=== PATIENT | male | born 1985 | race Caucasian/White ===

== ENCOUNTER 2019-03-02 14:30 | Emergency (ER) | payer OTHER, SELFPAY ==
[2019-03-02 14:32] VITALS: BP 149/87; PULSE 75; RESP 18; TEMP 36.4; BMI 26.7
--- NOTE | 2019-03-02 16:53 | ED.VIS.GEN ---
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 After placing the patient on the cot he went to raise the head of the bed and felt a pulling sensation in his right low back. It wraps around into the right lower abdomen. He states earlier it was wrapping down his leg but he has no leg symptoms at this time. There is no direct trauma to his back. He has not yet taken anything for pain. Past Medical History - Allergies and Home Meds Allergies/Adverse Reactions: Allergies No Known Allergies Allergy (Verified 11/14/15 20:23) Primary Care Physician: [facility] Doctor,Out of [Primary Care Provider] - Past Medical History: None Smoking Status: Never smoker Review of Systems General: Denies: Chills, Fever Eyes: Denies: Visual changes - bilaterally ENT: Denies: Bilateral ear pain Cardiovascular: Denies: Chest pain Respiratory: Denies: Dyspnea Gastrointestinal: Reports: Abdominal pain - Wrapping from right lower back Genitourinary: Denies: Dysuria, Hematuria Musculoskeletal: Reports: Back pain Neurological: Denies: Headache Endocrine: Denies: Polyuria, Polydipsia Hematologic: Denies: Easy bruising Allergy: Denies: Uticaria Physical Exam Vital Signs/Narrative: Vital Signs Temp Pulse Resp BP 03/02/19 14:32 97.5 F L 75 18 149/87 H Inital Vital Signs reviewed: Yes General: Well nourished, Well developed ENT: Moist mucous membranes Neck: Supple Cardiovascular: Regular rate, Regular rhythm Respiratory: No distress, CTA bilaterally Abdomen: Soft, Nontender Back: - - No midline thoracic or lumbar tenderness. Patient has focal reproducible tenderness in the right mid to low lumbar paraspinal muscles with palpable spasm. No overlying skin change. Skin: Normal color Neurological: Alert, Oriented x3, Normal Strength, Normal Sensation Psychological: Normal affect Diagnostic/Tx/Re-eval - Medical Decision Making Patient be treated with naproxen and Flexeril. Work restrictions have been written. He will follow-up with [facility]. ED Disposition - Plan for ED Patient: Disposition: Home or Assisted Living Diagnosis: Strain of lumbar paraspinal muscle Instructions: Back Sprain/Strain Prescriptions: cycloBENZAPRine HCl [Flexeril] 10 mg PO TID PRN #20 tablet PRN Reason: Muscle Spasm Naproxen [Naprosyn] 500 mg PO BID PRN PRN #20 tablet PRN Reason: Pain Referrals: [facility] [GROUP OF PHYSICIANS] - 3-5 Days
[2019-03-02] MEDS: Naproxen 500 MG Tablet PO (17:09)
== END 2019-03-02 17:13 | disposition home or self-care (01) ==
LOC: ED 16:57
PROVIDERS: Emergency Provider Emergency Medicine; Family Provider Family Medicine
DX: S39.012A Strain of muscle, fascia and tendon of lower back, initial encounter (principal); X58.XXXA Exposure to other specified factors, initial encounter; Y93.9 Activity, unspecified; Y92.9 Unspecified place or not applicable
CPT/HCPCS: 99283

== ENCOUNTER 2022-10-11 11:09 | Emergency (ER) | payer OTHER, SELFPAY ==
[2022-10-11 11:10] VITALS: BP 164/105; PULSE 91; RESP 18; TEMP 36.7; O2SAT 100; BMI 22.2
[2022-10-11] MEDS: oxyCODONE 5 MG Tablet PO (12:08)
--- NOTE | 2022-10-11 12:15 | RAD_ITS ---
EXAM: XR LUMBOSACRAL SPINE FLEXION/EXTENSION ONLY, 2 OR 3 VIEWS CLINICAL INDICATION: lower back pain, felt a pop and burning sensation TECHNIQUE: Lateral flexion/extension views of the lumbar spine and sacrum. This report was created using [employer] report [email or web address] technology. COMPARISON: None. FINDINGS: VERTEBRAE: Unremarkable. Preserved vertebral body height. No fracture. No spondylolisthesis. Preservation of the normal lumbar lordosis. No significant facet arthropathy. No instability. DISC SPACES: No acute findings. Disc spaces are maintained. GASTROINTESTINAL TRACT: Unremarkable as visualized. Included bowel gas pattern is non-obstructive. RAD/L/S Spine Bending Flex/Ext IMPRESSION: Normal lateral flexion and extension views of the lumbar spine. Electronically Signed: Torres Miranda MD at 12:33 EDT ,
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
[2022-10-11] MEDS: Naproxen 250 MG Tablet 375 MG PO (13:55)
== END 2022-10-11 14:00 | disposition home or self-care (01) ==
PROVIDERS: Emergency Provider Emergency Medicine; PCP Family Medicine; Visit Provider Emergency Medicine
DX: S20.229A Contusion of unspecified back wall of thorax, initial encounter (principal); M53.3 Sacrococcygeal disorders, not elsewhere classified; X50.0XXA Overexertion from strenuous movement or load, initial encounter; Y99.0 Civilian activity done for income or pay
CPT/HCPCS: 72120; 99283

== ENCOUNTER 2022-12-14 10:00 | Outpatient (RCR) | payer OTHER, SELFPAY ==
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
--- NOTE | 2022-12-14 10:24 | HP.PTDCSUM ---
It has been my pleasure to treat RADHA CRYSTAL referred by [facility] Richmond, with the diagnosis of LBP for a total of 3 visit(s). Discharge Date: Please see the following information for a summary of their discharge status. Subjective: I am all better now LBP Pain Intensity (Out of 10): 0 % Improvement: 99 Objective/Function: LBP 0/10. L/S extension ROM is now WNL. Pt is I with HEP. Rx goals achieved Goal 1:: Decrease LBP x 50% to aid with ambulation Goal Progress: Goal Met Goal 2:: Increase L/S ext ROM x 1 grade to aid with decreasing pain Goal Progress: Goal Met Goal 3:: I with HEP Goal Progress: Goal Met Plan: Discharge to HEP If there are questions or concerns regarding this patient's physical therapy, please feel free to call me at [phone]. Thank you for the referral of this patient. Sincerely, Ha Glover, PT, ATC Balance/Gait/Functional tests - Balance/Special Test Scores Oswestry Low Back Score: 13 Lower Extremity Functional Score: 80
== END 2022-12-14 19:00 | disposition home or self-care (01) ==
LOC: PT 10:00
PROVIDERS: PCP Family Medicine; Visit Provider Physician Assistant
DX: M53.3 Sacrococcygeal disorders, not elsewhere classified (principal); S39.012A Strain of muscle, fascia and tendon of lower back, initial encounter; S20.229A Contusion of unspecified back wall of thorax, initial encounter
CPT/HCPCS: 97014; 97110; 97161; 97164; G0283